=== PATIENT | female | born 1970 | race Caucasian/White ===

== ENCOUNTER → 2016-10-28 | Outpatient (CLI) | payer BC ==
--- NOTE | 2016-10-28 15:25 | RAD ---
Acute abdomen series with chest, 3 views, 10/28/2016: History: Abdominal pain, ulcerative colitis Gas is present in large and small bowel without significant bowel distention. A few small scattered air-fluid levels are noted. No free air is seen in the abdomen. There is no evidence of organomegaly. A right lower quadrant calcification may be an appendicolith, gluteal calcification or jake calcification. The heart size and pulmonary vascularity are normal. No pulmonary infiltrates are seen. There is no evidence of pleural fluid. IMPRESSION: Small scattered air-fluid levels in the GI tract suggests a mild ileus.
== END | disposition home or self-care (01) ==
LOC: DXRAD 14:44
PROVIDERS: ATTEND Family Medicine
DX: K51.80 Other ulcerative colitis without complications (principal)
CPT/HCPCS: 74022

== ENCOUNTER → 2017-11-25 | Outpatient (CLI) | payer BC ==
[~2017-11-25] MED LIST: 0.9 % SODIUM CHLORIDE 10 ML VIAL ONE; DEXAMETHASONE SOD PHOS 4 MG/ML VIAL ONE; IOHEXOL 300 MG/ML 50 ML VIAL. ONE; LIDOCAINE 1% PF 30 ML VIAL. ONE
[2017-11-25 12:39] LABS: U PREG PATIENT NEGATIVE (NEG)
== END | disposition home or self-care (01) ==
LOC: SURG 11:52
PROVIDERS: ATTEND Anesthesiology
DX: M50.13 Cervical disc disorder with radiculopathy, cervicothoracic region (principal); G43.809 Other migraine, not intractable, without status migrainosus; Z87.01 Personal history of pneumonia (recurrent); M19.90 Unspecified osteoarthritis, unspecified site; Z87.19 Personal history of other diseases of the digestive system; H54.7 Unspecified visual loss; Z98.890 Other specified postprocedural states
CPT/HCPCS: 62321; 81025; J1100; J2001; Q9967

== ENCOUNTER → 2017-12-23 | Outpatient (CLI) | payer BC | END | disposition home or self-care (01) | LOC: SURG 14:11 | PROVIDERS: ATTEND Anesthesiology | DX: M54.12 Radiculopathy, cervical region (principal); M50.30 Other cervical disc degeneration, unspecified cervical region; G43.809 Other migraine, not intractable, without status migrainosus | CPT/HCPCS: 99213 ==

== ENCOUNTER → 2017-12-30 | Outpatient (CLI) | payer BC ==
[~2017-12-30] MED LIST changes: +LIDOCAINE 1% PF 2 ML VIAL. ONE; -LIDOCAINE 1% PF 30 ML VIAL. ONE
== END | disposition home or self-care (01) ==
LOC: SURG 13:17
PROVIDERS: ATTEND Anesthesiology
DX: M54.12 Radiculopathy, cervical region (principal); J32.9 Chronic sinusitis, unspecified
CPT/HCPCS: 62321; J1100; Q9967

== ENCOUNTER → 2018-01-27 | Outpatient (CLI) | payer BC ==
[~2018-01-27] MED LIST changes: -0.9 % SODIUM CHLORIDE 10 ML VIAL ONE; +BUPIVACAINE MPF 0.25% 30 ML VIAL. ONE; -DEXAMETHASONE SOD PHOS 4 MG/ML VIAL ONE; -LIDOCAINE 1% PF 2 ML VIAL. ONE; +LIDOCAINE 1% PF 30 ML VIAL. ONE
== END | disposition home or self-care (01) ==
LOC: SURG 14:30
PROVIDERS: ATTEND Anesthesiology
DX: M47.812 Spondylosis without myelopathy or radiculopathy, cervical region (principal); M50.122 Cervical disc disorder at C5-C6 level with radiculopathy; Z79.899 Other long term (current) drug therapy; Z98.890 Other specified postprocedural states
CPT/HCPCS: 64490; 64491; J2001; J3490; Q9967

== ENCOUNTER → 2019-11-11 | Outpatient (CLI) | payer BC ==
--- NOTE | 2019-11-11 16:21 | RAD ---
DATE: 11/11/2019 10:10 AM EXAM: MAMMO RANJANA SCREENING BILATERAL HISTORY: Screening COMPARISON: 10/28/2017 Bilateral CC, XCCL and MLO views of the breasts were performed. Bilateral breast tomosynthesis was performed in CC and MLO projections. This study was interpreted with the benefit of Computerized Aided Detection (CAD). FINDINGS: Breast Density: HETERO The breast parenchyma Is heterogeneously dense, which could reduce sensitivity of mammography. Breast parenchyma level C No suspicious masses, microcalcifications or architectural distortion is present to suggest malignancy in either breast. The visualized axillae are unremarkable. IMPRESSION: No mammographic evidence of malignancy. BI-RADS CATEGORY: 1 NEGATIVE RECOMMENDED FOLLOW-UP: 12M 12 MONTH FOLLOW-UP Annual screening mammography is recommended, unless clinically indicated sooner based on symptoms or change in physical exam. PQRS compliance statement: Patient information was entered into a reminder system with a target due date for the next mammogram. Mammography is a sensitive method for finding small breast cancers, but it does not detect them all and is not a substitute for careful clinical examination. A negative mammogram does not negate a clinically suspicious finding and should not result in delay in biopsying a clinically suspicious abnormality. "Our facility is accredited by the [employer] Mammography Program."
== END | disposition home or self-care (01) ==
LOC: MAMMO 10:07
PROVIDERS: ATTEND Obstetrics & Gynecology
DX: Z12.31 Encounter for screening mammogram for malignant neoplasm of breast (principal)
CPT/HCPCS: 77063; 77067

== ENCOUNTER → 2020-06-09 | Outpatient (CLI) | payer BC ==
[~2020-06-09] MED LIST changes: -BUPIVACAINE MPF 0.25% 30 ML VIAL. ONE; +CYCL-331 PO; -IOHEXOL 300 MG/ML 50 ML VIAL. ONE; -LIDOCAINE 1% PF 30 ML VIAL. ONE; +MECL-75 PO; +MESA800T2 PO; +MONT10TA80 PO; +NORT10CA PO; +PROP80CA3 PO
== END ==
LOC: LAB 09:00
PROVIDERS: ATTEND Nurse Anesthetist, Certified Registered
DX: Z01.812 Encounter for preprocedural laboratory examination (principal); R10.13 Epigastric pain; R10.9 Unspecified abdominal pain; Z20.822 Contact with and (suspected) exposure to COVID-19
CPT/HCPCS: U0003

== ENCOUNTER → 2020-06-13 | Day surgery (SDC) | payer BC ==
[~2020-06-13] MED LIST changes: +IPRATRPIUM/ALBUTEROL 0.5/2.5MG 3 ML NEBU. NEB PRN; +IV RINGERS SOLUTION,LACTATED 1,000 ML IV SCH; +MIDAZOLAM HCL PF 2 MG/2 ML VIAL. IV ONE; +ONDANSETRON PF 4 MG/2 ML VIAL. IV PRN; +PROPOFOL 10,000 MCG/ML (20ML) VIAL IV ONE
[2020-06-13 09:49] VITALS: BP 118/77
--- NOTE | 2020-06-16 14:11 | PATHOLOGY ---
[facility] Accession Number: [id number] . 01 Material submitted: . PART A: small bowel - SMALL BOWEL PART B: gastrointestinal site - GASTRIC PART C: colon - RANDOM COLON BIOPSY . 01 Clinical history: . EPIGASTRIC/GASTRIC PAIN EGD/COLONOSCOPY A: RULE-OUT CELIAC B: RULE-OUT H PYLORI . 02 Diagnosis: A. Small bowel biopsies: - No significant pathologic abnormalities. . B. Gastric biopsy, antrum: - Congestion and slight chronic inflammation. . C. Colonic mucosa, random colon biopsies: - No significant pathologic abnormalities. (JPM:[facility] 06/16/2020) [facility] 06/16/2020 1052 Local . 02 Comment: Sections of the small bowel biopsy reveal segments of duodenal and small intestine mucosa. Where best oriented, the mucosal villi show no sprue-like changes or significant inflammatory changes. . Sections of the gastric antral biopsy show congestion and slight chronic inflammation. A properly controlled immunoperoxidase stain for Helicobacter is negative for Helicobacter organisms. . Sections of the random colon biopsy reveal multiple segments of colonic mucosa. There is no evidence of a chronic destructive colitis, lymphocytic colitis or collagenous colitis. (JPM:[facility] 06/16/2020) . Special stain performed: Immunoperoxidase stain for Helicobacter on B1. . 02 Electronically signed: . Seth James MD, Pathologist NPI- [id number] . 01 Gross description: . A. The specimen is received in formalin, labeled "Cory Dee, small bowel". Received are two segments of pale rg tissue measuring 0.4 cm each in maximum dimensions. The specimen is submitted entirely in cassette A1. . B. The specimen is received in formalin, labeled "Cory Dee, gastric biopsy". Received is a segment of pale rg tissue measuring 0.5 cm in maximum dimensions. The specimen is submitted entirely in cassette B1. . C. The specimen is received in formalin, labeled "Cory Dee, random colon biopsy". Received are multiple segments of pale rg tissue ranging in size from 0.2-0.4 cm in maximum dimensions. The specimen is submitted entirely in cassette C1. ([facility]; 06/15/2020) QAC/QAC 06/15/2020 1105 Local . 02 Pathologist provided ICD-10: K29.50, K31.89 . 02 CPT . 870793, 864591, [id number], [id number] Specimen Comment: A courtesy copy of this report has been sent to [phone], [phone] Specimen Comment: [id number] Specimen Comment: Report sent to / DR DALTON Performed at: 01 [facility] [address], [place] [id number] MD Micah Quick MD Phone: [phone] Performed at: 02 [facility] [address] [place], [place] [id number] MD Seth James MD Phone: [phone]
== END | disposition home or self-care (01) ==
LOC: SURG 07:29
PROVIDERS: ATTEND Emergency Medicine
DX: Z12.11 Encounter for screening for malignant neoplasm of colon (principal); R10.13 Epigastric pain; K29.50 Unspecified chronic gastritis without bleeding; K31.89 Other diseases of stomach and duodenum; K63.89 Other specified diseases of intestine; Z79.899 Other long term (current) drug therapy
CPT/HCPCS: 43239; 45380; 88305; 88342; J2704; J7120

== ENCOUNTER → 2020-07-20 | Outpatient (CLI) | payer BC ==
[2020-06-13 09:49] VITALS: BP 118/77
[~2020-07-20] MED LIST changes: -IPRATRPIUM/ALBUTEROL 0.5/2.5MG 3 ML NEBU. NEB PRN; -IV RINGERS SOLUTION,LACTATED 1,000 ML IV SCH; -MIDAZOLAM HCL PF 2 MG/2 ML VIAL. IV ONE; -ONDANSETRON PF 4 MG/2 ML VIAL. IV PRN; -PROPOFOL 10,000 MCG/ML (20ML) VIAL IV ONE
--- NOTE | 2020-07-20 09:31 | RAD ---
EXAM: Abdomen sonogram. HISTORY: Epigastric pain. TECHNIQUE: Sonographic imaging of the abdomen was performed. COMPARISON: None. FINDINGS: The liver is normal in size. No focal hepatic lesion is seen. The gallbladder is unremarkab le. The common bile duct is normal in caliber. The kidneys and spleen are unremarkable. The pancreas is obscured due to bowel gas. The aorta and inferior cava are unremarkable. IMPRESSION: 1. No acute sonographic finding. 2. Obscured pancreas due to bowel gas. Electronically signed by: Josy Disla MD (07/20/2020 9:29 AM) [id number]
== END ==
LOC: US 07:37
PROVIDERS: ATTEND Emergency Medicine
DX: R10.13 Epigastric pain (principal)
CPT/HCPCS: 76700

== ENCOUNTER → 2020-08-25 | Outpatient (CLI) | payer BC ==
[2020-06-13 09:49] VITALS: BP 118/77
[~2020-08-25] VITALS: Ht 149.9 cm; Wt 52.2 kg
[~2020-08-25] MED LIST changes: +NORMAL SALINE IV ONE; +SINCALIDE IV ONE
--- NOTE | 2020-08-25 10:57 | RAD ---
EXAM: Nuclear hepatobiliary scan. HISTORY: Epigastric pain and bloating. TECHNIQUE: Following intravenous administration of 5.5 mCi Tc 99m Choletec, anterior images of the ab domen were obtained at five minute intervals through one hour. Subsequently, 1.04 echograms CCK was a dministered and additional images to assess gallbladder ejection fraction were obtained. FINDINGS: There is prompt radiotracer uptake by the liver. No focal defect is seen. There is normal e xcretion into the biliary tree. The gallbladder is visualized within 40 minutes and there is free shahab w into the duodenum. The gallbladder ejection fraction is 36 percent. IMPRESSION: Low normal gallbladder ejection fraction of 36 percent. Electronically signed by: Josy Disla MD (08/25/2020 10:54 AM) [id number]
== END ==
LOC: NM 07:55
PROVIDERS: ATTEND Emergency Medicine
DX: K29.60 Other gastritis without bleeding (principal)
CPT/HCPCS: 78227; A9537; J2805

== ENCOUNTER → 2021-01-17 | Outpatient (CLI) | payer BC ==
[2020-06-13 09:49] VITALS: BP 118/77
[~2021-01-17] MED LIST changes: -NORMAL SALINE IV ONE; -SINCALIDE IV ONE
--- NOTE | 2021-01-17 18:05 | RAD ---
Bilateral digital screening 2-D and 3-D (tomosynthesis) mammogram: Reason for examination: Routine screening. Comparison is made to previous mammograms dated 11/11/2019 and 10/28/2017. Bilateral mammograms in CC and oblique projections were obtained with 2-D imaging and 3-D tomosynthes is imaging and reviewed on the workstation. Interpretation was made with the benefit of CAD. Findings: Breast density: Category C. The breasts are heterogeneously dense, which may obscure small masses. There are no suspicious masses, malignant appearing calcifications or architectural distortion. There are tiny areas of nodularity in the left breast which are unchanged the October 2019 exam. Impression: No evidence of malignancy. ASSESSMENT: BI-RADS 2. Benign findings. Recommendations: Routine screening mammograms. This patient's information has been entered into a reminder system for the patient to be notified wit h the results of her examination and a target date for the next mammogram. Your patient's mammogram demonstrates that she has dense breast tissue (breast density category C or D), which could hide abnormalities, and if she has other risk factors for breast cancer that have bee n identified, she might benefit from supplemental screening tests that may be suggested by you as her ordering physician. Dense breast tissue, in and of itself, is a relatively common condition. Therefo re, this information is not provided to cause undue concern, but rather to raise your awareness and t o promote discussion with your patient regarding the presence of other risk factors, in addition to d ense breast tissue. Electronically signed by: Halima Cade MD (01/17/2021 6:02 PM) [id number]
== END ==
LOC: MAMMO 14:48
PROVIDERS: ATTEND Obstetrics & Gynecology
DX: Z12.31 Encounter for screening mammogram for malignant neoplasm of breast (principal)
CPT/HCPCS: 77063; 77067

== ENCOUNTER → 2021-06-28 | Outpatient (CLI) | payer BC ==
[2020-06-13 09:49] VITALS: BP 118/77
[~2021-06-28] MED LIST changes: -CYCL-331 PO; +CYCL10TA19 PO
--- NOTE | 2021-06-28 13:50 | RAD ---
Exam Date: 06/28/2021 8:18 AM US ABDOMEN COMPLETE Indication: Reason: ABD PAIN / Spl. Instructions: / History: . TECHNIQUE: Multiple longitudinal and transverse sonographic images of the abdomen are submitted for interpretation. FINDINGS: The liver is normal in size and echogenicity. The portal vein is patent with hepatopetal flow. No focal intrahepatic abnormality is seen. Status post cholecystectomy. There is no biliary ductal dilatation, with the common bile duct measur ing 3 mm. The spleen is normal in size and echogenicity. The visualized abdominal aorta, inferior vena cava an d pancreas are within normal limits. There is no upper abdominal ascites. The kidneys are normal in appearance, with the right kidney measuring 9.1 cm and the left kidney measuring 10.5 cm. IMPRESSION: Status post cholecystectomy. Otherwise normal abdominal ultrasound. Electronically signed by: Miguel Harden MD (06/28/2021 1:47 PM) [id number]
== END ==
LOC: US 08:07
PROVIDERS: ATTEND Internal Medicine Gastroenterology
DX: R10.11 Right upper quadrant pain (principal); R10.84 Generalized abdominal pain; K51.90 Ulcerative colitis, unspecified, without complications; Z90.49 Acquired absence of other specified parts of digestive tract
CPT/HCPCS: 76700

== ENCOUNTER → 2021-08-02 | Outpatient (CLI) | payer BC ==
[2020-06-13 09:49] VITALS: BP 118/77
[2021-08-02 12:01] LABS: BASO % 1 % (0-3); EOS # 0.1 x10^3/uL (0.0-0.7); EOS % 3 % (0-3); HEMATOCRIT 38.4 % (36.0-47.0); HEMOGLOBIN 12.9 g/dL (12.0-15.5); LYMPH # 2.2 x10^3/uL (1.0-4.8); LYMPH % 47 % (24-48); MEAN CORPUSCULAR HEMOGLOBIN 31 pg (25-35); MEAN CORPUSCULAR HGB CONC 34 g/dL (31-37); MEAN CORPUSCULAR VOLUME 91 fL (79-100); MONO # 0.4 x10^3/uL (0.0-1.1); MONO % 8 % (0-9); NEUT # 1.9 x10^3uL (1.8-7.7); NEUT % 42 % (31-73); PLATELET COUNT 372 x10^3/uL (140-400); RED BLOOD COUNT 4.21 x10^6/uL (3.50-5.40); RED CELL DISTRIBUTION WIDTH 13.1 % (11.5-14.5); WHITE BLOOD COUNT 4.6 x10^3/uL (4.0-11.0)
[2021-08-02 12:15] LABS: ALBUMIN 3.7 g/dL (3.4-5.0); ALBUMIN/GLOBULIN RATIO 1.1 (1.0-1.7); ALK PHOS 99 U/L (46-116); ALT (SGPT) 31 U/L (14-59); ANION GAP 8 (6-14); AST (SGOT) 21 U/L (15-37); BLOOD UREA NITROGEN 5 mg/dL (7-20); BUN/CREATININE RATIO 7 (6-20); CARBON DIOXIDE 30 mmol/L (21-32); CHLORIDE 103 mmol/L (98-107); CREATININE 0.7 mg/dL (0.6-1.0); GFR 87.9; GLUCOSE 92 mg/dL (70-99); LIPASE 109 U/L (73-393); SODIUM 141 mmol/L (136-145); TOTAL BILIRUBIN 0.3 mg/dL (0.2-1.0); TOTAL PROTEIN 7.2 g/dL (6.4-8.2)
[2021-08-02 12:17] LABS: C REACTIVE PROTEIN < 0.5 mg/L (0-3.3)
== END ==
LOC: LAB 10:40
PROVIDERS: ATTEND Internal Medicine Gastroenterology
DX: K51.90 Ulcerative colitis, unspecified, without complications (principal); R10.84 Generalized abdominal pain; R10.11 Right upper quadrant pain
CPT/HCPCS: 36415; 80053; 83690; 85025; 86140